=== PATIENT | female | born 1960 | race Caucasian/White ===

== ENCOUNTER → 2016-09-30 | Day surgery (SDC) | payer OTHER ==
[2016-09-30] VITALS (9 sets, daily range): BP systolic 93–118; BP diastolic 62–81; PULSE 61–74; RESP 11–16; O2SAT 92–99
[~2016-09-30] VITALS: Ht 160 cm; Wt 55.4 kg
[~2016-09-30] MED LIST: CALC625T83 PO; CITA40TA PO; CeFAZolin Inj 2 GM in IV Premix 1 EACH IV ONE; Dexamethasone 4 mg/mL Inj IVPUSH PRN; Dexamethasone 4 mg/mL Inj ONE; EPHEDrine Sulfate 50 mg/mL Inj IVPUSH PRN; EPHEDrine/NS 5 mg/mL 5 mL Syringe ONE; HYDROmorphone 1 mg/mL Inj IVPUSH PRN; IMI100 PO; Lactated Ringer's 1,000 ML IV SCH; Lactated Ringer's 500 ML IV PRN; Lidocaine MPF 2%-Epi 1:200,000 20mL Inj NERVEBLOCK ONE; MELA1TAB28 PO; MetoCLOpramide 5 mg/mL 2 mL Inj IVPUSH PRN; NIFE30TA92 PO; Ondansetron 2 mg/mL 2 mL Inj IVPUSH PRN; Ondansetron 2 mg/mL 2 mL Inj ONE; PRAM0.256 PO; Phenylephrine 10,000 mCg/mL Inj IVPUSH PRN; Propofol 10,000 mCg/mL 20 mL Inj ONE; excedrin; fentaNYL-PF 50 mCg/mL 2 mL Inj IVPUSH PRN; fentaNYL-PF 50 mCg/mL 2 mL Inj ONE
[2016-09-30] MEDS: Lactated Ringer's 1,000 ML IV SCH ×2 (09:50→12:07)
--- NOTE | 2016-09-30 10:16 | PCM.HPANE ---
Patient Data Date of Service: Sep 30, 2016 Surgeon Admitting Provider: Attending Provider:Gayle Mckoen DPM Primary Care Physician:Nguyen Marcelino MD Other Provider:Olga Knight Anesthesia Reason for Visit Disorder Of Ligament, Left Ankle Ht/WT & BMI Height (Feet): 5 Height (Inches): 3.00 Weight (Kilograms): 55.4 Body Mass Index 21.00 Allergies Coded Allergies: hydroxychloroquine (Verified Allergy, Unknown, rash, swollen lips, 09/24/16 ) Sulfa (Sulfonamide Antibiotics) (Unverified Adverse Reaction, Severe, itching, 09/24/16) Past Anesthesia History Anesthesia History: Positive for:: Anesthesia Reactions (nausea, low blood pressure), Denies:: Abnormal Airway, Difficult Intubation, Fam Anesthesia Reaction, Fam Malignant Hypertherm, Malignant Hyperthermia Diabetes History Hx Diabetes?: No MRSA MRSA: No Medications Hypertension Medication: No Home Meds Incl Beta Hao: No Reported Medications Pramipexole Dihydrochloride 0.25 Mg Tablet0.25 Mg PO HS 09/24/16 Melatonin/Pyridoxine HCl (B6) (Melatonin 3 mg Tablet)1 Each Tablet1 Each PO DAILY 09/24/16 Sumatriptan (Imitrex)100 Mg Alfuqs77 Mg PO Q2H PRN migraines NTE 200mg/24hrs 09/24/16 Calcium Polycarbophil (Fiber-Caps)625 Mg Tablet3 Tab PO DAILY 09/24/16 [excedrin] No Conflict Isidv961 Mg PRN For Pain 09/24/16 Citalopram Hydrobromide (Celexa)40 Mg Ekdyai12 Mg PO DAILY Ref 0 09/24/16 Nifedipine ER (Adalat CC)30 Mg Brstpb07 Mg PO DAILY Ref 0 09/24/16 Discontinued Reported Medications Cholecalciferol (Vitamin D3) (Vitamin D3)4,000 Unit Capsule4,000 Unit PO DAILY 10/30/14 Itraconazole (Sporanox)100 Mg Kyzpyqh954 Mg PO DAILY 10/30/14 Doxylamine Succinate (Nighttime Sleep-Aid)25 Mg Sompyz33 Mg PO HS 10/30/14 Pramipexole Dihydrochloride (Mirapex)0.125 Mg Tablet0.125-0.25 Mg PO HS 10/30/14 Metronidazole (Metronidazole Cream)45 Gm Cream..g.1 Applic TOP BID #45 GM Ref 0 0.75% 10/30/14 Magnesium Oxide (Magnesium)250 Mg Dcjcmm812 Mg PO DAILY PLEASE VERIFY DOSAGE & FREQUENCY 10/30/14 Sumatriptan Succinate (Imitrex)50 Mg Zpknry72 Mg PO PRN 10/30/14 Ibuprofen 200 Mg Ozwhpxg939 Mg PO QID PRN For Pain Ref 0 10/30/14 Fluticasone Propionate (Flonase Allergy Relief)50 Mcg/Actuation [place].susp9.9 Ml NS DAILY 10/30/14 [Excedrin-Es] No Conflict Check1 Tab PO UD 10/30/14 Doxycycline Hyclate 100 Mg Islmhly869 Mg PO BID PRN PRN FLARES 10/30/14 Citalopram Hydrobromide (Celexa)40 Mg Fbvqvn96 Mg PO DAILY Ref 0 10/30/14 History History of ENT Problems?: Yes HEENT History: Positive for:: TMJ (wears nightguard) Denies:: Abnormal Airway Cataracts Difficult Intubation Dysphagia Glaucoma Hearing Problem Sinus Problem Denture Type: None Teeth Condition: Within Normal Limits Hx of Heart Problems?: No Cardiovascular History: Positive for:: Peripheral Vascular Denies:: AICD Abdominal Aortic Aneurism Atrial Fibrillation Cardiac Surgery Chest Pain Coronary Artery Disease Edema Heart Murmur Hypertension Irregular Heartbeat Pacemaker Rheumatic Fever Other Cardiac History: raynauds- takes nifedipine daily, held this am Hx of Respiratory Problem?: No Respiratory History: Denies:: Asthma COPD Emphysema Oxygen Administration Pneumonia Tuberculosis Use of C-PAP Machine Use of Inhalers / NEBS Hx Neurologic Problems?: Yes Neurological History: Positive for:: Headaches (one to two times weekly) Denies:: CVA Multiple Sclerosis Parkinson's Disease Seizures TIA Hx of GI Problems?: Yes Gastrointestinal History: Positive for:: Gastroesphageal Reflux Other GI Pertinent History: esophageal dysmotility (CREST syndrome), MATILDE mild , no daily symptoms. takes omeprazole prn Hx of Problems?: No Genitourinary History: Denies:: Urinary Tract Infection Female Hx: Positive for:: Problems with Breasts? (hx of benign biopsys) Denies:: Currently Skin History: Positive for:: History Skin Disorders? (RASHES) Denies:: Pressure Ulcers Hx Musculoskeletal Problems?: Yes Musculoskeletal History: Positive for:: Musculoskeletal Trauma (left ankle current admission problem) Osteoarthritis Denies:: Back Injury Fibromyalgia Joint Replacement Myasthenia Gravis Hx of Psycho/Social Problems?: Yes Psycho Social History: Positive for:: Anxiety Hx Depression Hx Surgeries?: Yes (BLADDER SLING,LT BUNIONECTOMY,EXC FIBROUS TUMOR LT SHOULDER X2) Hx Any Other Health Problems?: No Other History: Denies:: Cancer Endocrine Disease Hospitalization Thyroid Disease History Blood Transfusions: Positive for:: Accept Blood Products? Denies:: Blood Transfusions Hx Diabetes: No Hx Alcohol Use: YesAlcoholic Drinks Per Day: one drink dailyHx Substance Use: No Smoking Status: Never Smoker Have You Smoked inLast 12 mo: No Stop/Bang Treated for Sleep Apnea?: No Do You Have a CPAP Machine?: No S-Snoring: Do You Snore Loudly: No T-Tired: feel tired, fatigued: No O-Obsered: Observed not breath: No P-Blood Pressure: treated: No B- Body Mass Index > 35 kg/m2: No A- Age over 50: Yes N- Neck Large Circumference: No G- Gender Male: No GIL Total Score: 1 GIL Risk Assessment: Low Risk, <3 Yes Risk Assessment Category Category 1A: Patient has history of documented sleep apnea, and HAS NOT received any narcotic, sedative or anesthesia administration during this stay. Category 1B: Patient has history of documented sleep apnea, and HAS received any narcotic , sedative or anesthesia administration during this stay Category 2: Patient has SUSPECTED Obstructive Sleep Apnea, and HAS received any narcotic , sedative or anesthesia administration during this stay. Category 3: Patient has SUSPECTED Obstructive Sleep Apnea and HAS NOT received narcotic, sedative or anesthesia administration during this stay. Category 4: Outpatient in Procedural Areas with known sleep apnea or who screen positive for High Risk via the STOP/BANG questionnaire. Exam Exam Vital Signs Vital Signs Date Time Temp Pulse Resp B/P Pulse Ox O2 Delivery O2 Flow Rate FiO2 09/30/16 09:51 36.2 61 16 113/81 99 Room Air General Appearance: Alert, Oriented X3, Cooperative HEENT/AIRWAY: MP 1 Lungs: Clear to Auscultation Heart: Regular Rate/Rhythm, No Murmurs/Rubs/Gallops Meds/Labs/Diagnostics Admission Meds Current Medications Lactated Ringer's (Lr) 1,000 ml @ 120 mls/hr Q8H20M IV Last administered on t 09:50; Start 09/30/16 at 05:00; Stop 09/30/16 at 13:19 Plan Impression Patient chart reviewed, patient interviewed and anesthestic plan with risks, benefits, and alternatives discussed, and informed consent obtained. Rodriguez Carbajal DO Sep 30, 2016 10:16
--- NOTE | 2016-09-30 13:47 | PCM.PODPO ---
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 Procedure Left calcaneofibular ligament repair with anchor, left primary anterior talofibular ligament repair Surgeon Surgeon: Gayle Mckeon DPM Assistants: None Indication for Procedure Chronic instability with pain in the left ankle. Findings Completely avulsed calcaneofibular ligament. Osteoporosis. Improved stability after ligamentous repair. Details of Procedure The patient was identified in the preoperative holding area and brought back to the operating room plate. She was placed on the operating table in supine position. A timeout protocol was completed in the patient's name and site of surgery confirmed. The lower extremity was prepped and draped in usual aseptic manner after the knee. Gen. anesthesia was initiated and the left ankle anesthetized with 2% lidocaine with epinephrine. An incision was made on the anterior lateral aspect of the left ankle. Blunt dissection was carried through the soft tissue and neurovascular structures retracted. Several small blood vessels were cauterized as needed. The ankle capsule was incised with a # 15 scalpel. Immediately, exuberant amounts of synovial fluid were expressed. Using a curved hemostat the ankle capsule incision was widened slightly to identified fragments of the lateral ankle ligaments. It was found that the calcaneofibular ligament was completely atrophied and retracted posteriorly. A 3.5 mm soft tissue anchor was inserted into the lateral wall of the calcaneus at the appropriate angulation for CF ligament repair. The remaining portion of the ligament was used to reapproximated to its previous origin at the distal tip of the fibula, deep to the peroneal tendons, using the 2 FiberWire sutures attached to the anchor. Buskirk placement revealed significantly softened calcaneal bone. The peroneal tendons were retracted throughout the procedure. The visible portion of the tendons appeared intact. Irrigation was performed of the joint. The anterior talofibular ligament fragments were identified within the capsular tissue. This was grossly attenuated. A section of the tissue was resected. The remaining portions of the ligament tissue were primarily repaired using the remaining FiberWire from the previous anchor. Once the repair was complete, stability of the lateral ankle was restored. Final stress testing was negative for any laxity. The subcutaneous tissue was reapproximated with 2-0 Vicryl, including the extensor retinaculum. The skin was closed with subcutaneous and subcuticular 4-0 Vicryl suture, reinforced with half-inch Steri-Strips. The dressing consisted of 4 x 4 gauze, Kerlix, 4 inch stockinette, and a well-padded posterior splint. The patient was weaned off of general anesthesia and taken to the recovery room with vital signs stable and the vascular status to the left lower extremity intact. Grafts, Implants: Implants-See Implant Record Complications There were no periprocedural complications identified. Condition Stable Anesthetic Administered: GA Drains: None Catheters: None Output, Estimated Blood Loss: 10 (ml) Blood Admin during surgery: No Surgical Cast or Splint: Well-padded Short Leg Splint Surgical Specimen Removed: No Specimen sent to Pathology: No Post Operative Plan Nonweightbearing on the left lower extremity, well-padded posterior splint. The plan is to remove this in 8-9 days and replace with a short leg cast, nonweightbearing. The patient has by mouth pain medication at home. Postoperative instructions were given regarding keeping the dressing clean, dry , and intact. Gayle Mckeon DPM Sep 30, 2016 13:47
[2016-09-30] MEDS: oxyCODONE-Acetamin 5-325 mg Tablet PO PRN ×2 (14:28→15:04)
== END | disposition home or self-care (01) ==
LOC: SAS 09:24
PROVIDERS: ATTEND Podiatrist
DX: M24.272 Disorder of ligament, left ankle (principal); M71.372 Other bursal cyst, left ankle and foot; M25.572 Pain in left ankle and joints of left foot; M81.0 Age-related osteoporosis without current pathological fracture; G43.909 Migraine, unspecified, not intractable, without status migrainosus; G25.81 Restless legs syndrome
CPT/HCPCS: 27695; 76000; C1713; J0690; J1100; J2250; J2405; J3010; J7120